=== PATIENT | male | born 1960 | race Caucasian/White ===

== ENCOUNTER → 2023-05-14 | Outpatient (CLI) | payer BC | LOC: M PLARAD 10:54 | PROVIDERS: ATTEND Nurse Practitioner Family | DX: D38.1 Neoplasm of uncertain behavior of trachea, bronchus and lung (principal) | CPT/HCPCS: 78815; A9552 ==

== ENCOUNTER → 2024-12-25 | Outpatient (CLI) | payer BC, OTHER | LOC: M RAD 09:24 | PROVIDERS: ATTEND Surgery Vascular Surgery | DX: I71.43 Infrarenal abdominal aortic aneurysm, without rupture (principal); Z95.828 Presence of other vascular implants and grafts; I70.0 Atherosclerosis of aorta ==

== ENCOUNTER 2025-07-23 07:01 | Outpatient (CLI) | payer MEDICARE ==
[~2025-07-23] VITALS: Ht 175.3 cm; Wt 95.0 kg
[2025-07-23 07:21] VITALS: BP 126/82; O2SAT 97
[2025-07-23] MEDS: COSYNTROPIN 0.25 MG/ML 1ML VIAL IV ONE (07:31)
[2025-07-23 08:45] VITALS: BP 115/74; O2SAT 99
== END 2025-07-23 08:45 | disposition home or self-care (01) ==
LOC: M INFU 07:01
PROVIDERS: ATTEND Medical Genetics Clinical Genetics (M.D.)
DX: E27.40 Unspecified adrenocortical insufficiency (principal); Z88.8 Allergy status to other drugs, medicaments and biological substances
CPT/HCPCS: 36415; 82024; 82533; 96374; J0834